=== PATIENT | male | born 1955 | race Two or more races ===

== ENCOUNTER → 2021-11-21 | Outpatient (CLI) | payer OTHER | END | disposition home or self-care (01) | LOC: LAB 07:50 | PROVIDERS: ATTEND Student in an Organized Health Care Education/Training Program | DX: E03.9 Hypothyroidism, unspecified (principal) | CPT/HCPCS: 36415; 84443 ==

== ENCOUNTER → 2023-01-29 | Outpatient (CLI) | payer OTHER, MEDICARE ==
[2023-01-29 08:10] LABS: Urine WBC None Seen /hpf (0 - 3)
[2023-01-29 08:14] LABS: Basophils # (auto) 0 10 ^3/uL (0-0.2); Basophils % (auto) 0.7 % (0.0-2.0); Eosinophils # (auto) 0.2 10 ^3/uL (0-0.8); Eosinophils % (auto) 3.4 % (0.0-7.0); Hematocrit 47.7 % (41.0-53.0); Hemoglobin 15.9 g/dL (13.5-17.5); Lymphocytes % (auto) 28.5 % (10.0-50.0); Mean Corpuscular Hemoglobin 28.9 pg (28.0-32.0); Mean Corpuscular Hgb Conc. 33.3 g/dL (32.0-36.0); Mean Corpuscular Volume 86.8 fL (80.0-100.0); Monocytes # (auto) 0.6 10 ^3/uL (0-1.3); Monocytes % (auto) 7.9 % (0.0-12.0); Neutrophils # (auto) 4.2 10 ^3/uL (1.6-8.6); Neutrophils % (auto) 59.5 % (37.0-80.0); Nucleated Red Blood Cells % 0.1 %; Red Blood Cells 5.49 10^6/uL (4.5-5.90); Red Cell Distribution Width 13.1 % (11.8-14.3)
[2023-01-29 08:27] LABS: Urine Bacteria NONE SEEN /hpf (None Seen); Urine Blood Negative /uL (Negative); Urine Specific Gravity 1.004 (1.001-1.035)
[2023-01-29 09:53] LABS: Albumin 3.6 g/dL (3.4-5.0); BUN/Creatinine Ratio 15.4 (10.0-20.0)
== END | disposition home or self-care (01) ==
LOC: LAB 07:58
PROVIDERS: ATTEND Student in an Organized Health Care Education/Training Program
DX: I10 Essential (primary) hypertension (principal); E03.8 Other specified hypothyroidism
CPT/HCPCS: 36415; 80053; 80061; 81001; 83036; 84439; 84443; 85025

== ENCOUNTER → 2023-07-23 | Outpatient (CLI) | payer OTHER ==
[2023-07-23 12:03] LABS: Urine Bacteria NONE SEEN /hpf (None Seen); Urine Blood Negative /uL (Negative); Urine Clarity Clear (Clear); Urine Color Colorless (Yellow); Urine Protein, UAD Negative (Negative); Urine Specific Gravity 1.011 (1.001-1.035); Urine Urobilinogen Normal (Negative); Urine WBC <1 /hpf (0 - 3); Urine pH 7.5 (5.0-8.0)
[2023-07-23 12:13] LABS: Anion Gap 6 (5-15); Carbon Dioxide 28 mmol/L (20-30); Chloride 105 mmol/L (98-107); Sodium 139 mmol/L (136-145)
[2023-07-23 12:14] LABS: Calcium 9.2 mg/dL (8.5-10.1)
[2023-07-23 12:19] LABS: BUN/Creatinine Ratio 14.9 (10.0-20.0); Blood Urea Nitrogen 13 mg/dL (9-23); Glucose 87 mg/dL (74-106)
== END | disposition home or self-care (01) ==
LOC: LAB 11:16
PROVIDERS: ATTEND Student in an Organized Health Care Education/Training Program
DX: I10 Essential (primary) hypertension (principal); E03.8 Other specified hypothyroidism
CPT/HCPCS: 36415; 80048; 81001; 82274; 84439; 84443

== ENCOUNTER → 2025-01-12 | Outpatient (CLI) | payer OTHER ==
[2025-01-12 07:20] LABS: Urine Bacteria None Seen /hpf (None Seen)
[2025-01-12 07:23] LABS: Basophils # (auto) 0 10 ^3/uL (0-0.2); Basophils % (auto) 0.3 % (0.0-2.0); Eosinophils # (auto) 0 10 ^3/uL (0-0.8); Eosinophils % (auto) 0.3 % (0.0-7.0); Hematocrit 44.7 % (41.0-53.0); Hemoglobin 14.9 g/dL (13.5-17.5); Lymphocytes # (auto) 1.5 10 ^3/uL (0.4-5.4); Lymphocytes % (auto) 17.5 % (10.0-50.0); Mean Corpuscular Hemoglobin 30.1 pg (28.0-32.0); Mean Corpuscular Hgb Conc. 33.3 g/dL (32.0-36.0); Mean Corpuscular Volume 90.3 fL (80.0-100.0); Monocytes # (auto) 0.6 10 ^3/uL (0-1.3); Monocytes % (auto) 6.5 % (0.0-12.0); Neutrophils # (auto) 6.6 10 ^3/uL (1.6-8.6); Neutrophils % (auto) 75.4 % (37.0-80.0); Platelet Count (auto) 333 10^3/uL (140-450); Red Blood Cells 4.94 10^6/uL (4.5-5.90); Red Cell Distribution Width 13.4 % (11.8-14.3); White Blood Cell 8.8 10^3/uL (4.4-10.8)
[2025-01-12 07:27] LABS: Urine Blood Negative /uL (Negative); Urine Clarity Clear (Clear); Urine Color Colorless (Yellow); Urine Protein, UAD Negative (Negative); Urine Specific Gravity 1.005 (1.001-1.035); Urine Squamous Epithelial Cell None Seen /hpf (<5); Urine Urobilinogen Normal (Negative)
[2025-01-12 07:48] LABS: Alanine Aminotransferase 15 U/L (7-40); Albumin 4.5 g/dL (3.2-4.8); Anion Gap 7 (5-15); BUN/Creatinine Ratio 17.9 (10.0-20.0); Bilirubin, Total 1.1 mg/dL (0.2-1.0); Blood Urea Nitrogen 14 mg/dL (9-23); Calcium 9.5 mg/dL (8.7-10.4); Carbon Dioxide 26 mmol/L (20-31); Chloride 104 mmol/L (98-107); Glucose 104 mg/dL (74-106); Potassium 3.8 mmol/L (3.5-5.1); Sodium 137 mmol/L (136-145); Total Protein 7.5 g/dL (5.7-8.2); Triglycerides 52 mg/dL (< 150)
[2025-01-12 07:52] LABS: Alkaline Phosphatase 139 U/L (46-116); Aspartate Aminotransferase 11 U/L (13-40); Cholesterol 208 mg/dL (< 200); HDL Cholesterol 81 mg/dL (40-59); LDL Cholesterol 110 mg/dL (< 100)
[2025-01-12 10:58] LABS: Prostate Specific Antigen 0.84 ng/mL (0.0-4.0)
[2025-01-12 11:09] LABS: Free T4 (Free Thyroxine) 1.38 ng/dL (0.89-1.76)
== END | disposition home or self-care (01) ==
LOC: LAB 07:07
PROVIDERS: ATTEND Student in an Organized Health Care Education/Training Program
DX: Z12.11 Encounter for screening for malignant neoplasm of colon (principal); N40.0 Benign prostatic hyperplasia without lower urinary tract symptoms; I10 Essential (primary) hypertension; E03.8 Other specified hypothyroidism; R73.9 Hyperglycemia, unspecified
CPT/HCPCS: 36415; 80053; 80061; 81001; 83036; 84153; 84439; 84443; 85025

== ENCOUNTER 2025-06-13 09:27 | Outpatient (CLI) | payer OTHER ==
[2025-06-13 10:03] LABS: Hematocrit 43.1 % (41.0-53.0); Hemoglobin 14.7 g/dL (13.5-17.5); Mean Corpuscular Hemoglobin 30.3 pg (28.0-32.0); Mean Corpuscular Volume 89.2 fL (80.0-100.0); Nucleated Red Blood Cells % 0.1 %
[2025-06-13 10:52] LABS: Alanine Aminotransferase 15 U/L (7-40); Alkaline Phosphatase 111 U/L (46-116); Anion Gap 10 (5-15); BUN/Creatinine Ratio 17.7 (10.0-20.0); Blood Urea Nitrogen 17 mg/dL (9-23); Calcium 9.0 mg/dL (8.7-10.4); Carbon Dioxide 24 mmol/L (20-31); Chloride 106 mmol/L (98-107); Glucose 94 mg/dL (74-106); Potassium 3.9 mmol/L (3.5-5.1); Sodium 140 mmol/L (136-145); Triglycerides 114 mg/dL (< 150)
[2025-06-13 10:53] LABS: Cholesterol 195 mg/dL (< 200); Total Protein 7.4 g/dL (5.7-8.2)
[2025-06-13 10:54] LABS: Albumin 4.1 g/dL (3.2-4.8); Bilirubin, Total 1.0 mg/dL (0.2-1.0)
[2025-06-13 10:55] LABS: HDL Cholesterol 64 mg/dL (40-59)
== END 2025-06-13 17:00 | disposition home or self-care (01) ==
LOC: LAB 09:27
PROVIDERS: ATTEND Student in an Organized Health Care Education/Training Program
DX: I10 Essential (primary) hypertension (principal); E78.5 Hyperlipidemia, unspecified; E55.9 Vitamin D deficiency, unspecified; R73.9 Hyperglycemia, unspecified
CPT/HCPCS: 36415; 80053; 80061; 83036; 84439; 84443; 85025

== ENCOUNTER 2025-08-05 19:21 | Emergency (ER) | payer OTHER ==
[~2025-08-05] VITALS: Ht 167.6 cm; Wt 90.2 kg
--- NOTE | 2025-08-05 19:55 | ED.PDOC ---
History of Present Illness HPI Comments This patient is a 70 y/o obese Argentine-speaking M with a history of hypertension, presents with spouse for c/c of burning epigastric abdominal pain, nausea, and vomiting. Patient reports 2x week history of symptoms following initial, unprovoked and atraumatic onset. He comments on pain radiating to his substernal chest and back area and describes his vomitus as "acidic." No endorsement of any recent ailments, sick contacts, travel, spoiled food consumption, or further pertinent medical, surgical, or social history. He states on being compliant with his medications. Denies any bloody or bilious vomitus, diarrhea, constipation, urinary problems, or further acute symptoms. Upon arrival to ED triage, patient's vitals were noted to have been stable and within normal limits, with exception of being, slightly, hypertensive. Chief Complaint: Abdominal Pain Time Seen by MD: 19:45 Reviewed Notes: Nurses Notes, Medications, Allergies Allergies: Coded Allergies: NO KNOWN ALLERGIES (Unverified , 08/05/25) Information Source: Patient, Spouse Mode of Arrival: Ambulatory Severity: Moderate Timing: Weeks Duration: Since onset Prehospital treatment: None Past Medical History PAST MEDICAL HISTORY: HTN Surgical History: Denies all surgeries Family History Family History: Reviewed,noncontributory to illness, No family hx of Cancer, No family hx of DM, No family hx of Heart zen, No family hx of HTN, No family hx ofKidney zen, No family hx of Liver zen, No family hx of Lung zen, No family hx of Stroke Social History Smoker: Non-Smoker Alcohol: Denies ETOH Use Drugs: Denies Drug Use Lives In: Home Constitutional: denies: chills, diaphoresis, fatigue, fever, malaise, sweats, weakness, others EENTM: denies: blurred vision, double vision, ear bleeding, ear discharge, ear drainage, ear pain, ear ringing, eye pain, eye redness, hearing loss, mouth pain, mouth swelling, nasal discharge, nose bleeding, nose congestion, nose pain, photophobia, tearing, throat pain, throat swelling, voice changes, others Respiratory: denies: cough, hemoptysis, orthopnea, SOB at rest, shortness of breath, SOB with excertion, stridor, wheezing, others Cardiovascular: denies: chest pain, dizzy spells, diaphoresis, Dyspnea on exertion, edema, irregular heart beat, left arm pain, lightheadedness, palpitations, PND, syncope, others Gastrointestinal: reports: abdominal pain; denies: abdomen distended, blood streaked bowels, constipated, diarrhea, dysphagia, difficulty swallowing, hematemesis, melena, nausea, poor appetite, poor fluid intake, rectal bleeding, rectal pain, vomiting, others Genitourinary: denies: burning, dysuria, flank pain, frequency, hematuria, incontinence, penile discharge, penile sore, pain, testicle pain, testicle swelling, urgency, others Neurological: denies: dizziness, fainting, headache, left sided numbness, left sided weakness, numbness, paresthesia, pre-existing deficit, right sided numbness, right sided weakness, seizure, speech problems, tingling, tremors, weakness, others Musculoskeletal: reports: back pain; denies: gout, joint pain, joint swelling, muscle pain, muscle stiffness, neck pain, others Integumetry: denies: bruises, change in color, change in hair/nails, dryness, laceration, lesions, lumps, rash, wounds, others Allergic/Immunocompromised: denies: Difficulty Healing, Frequent Infections, Hives, Itching, others Hematologic/Lymphatic: denies: anemia, blood clots, easy bleeding, easy bruising, swollen glands, others Endocrine: denies: excessive hunger, excessive sweating, excessive thirst, excessive urination, flushing, intolerance to cold, intolerance to heat, unexplained weight gain, unexplained weight loss, others Psychiatric: denies: anxiety, bipolar disorder, depression, hopeless, panic disorder, schizophrenia, sleepless, suicidal, others All Other Systems: Reviewed and Negative (Comprehensive review of systems are negative unless stated in HPI) Physical Exam General Appearance: Moderate Distress (Patient was in mild to moderate distress due to epigastric discomfort), Obese HEENT: Normal ENT Inspection, Pharynx Normal, TMs Normal Neck: Full Range of Motion, Non-Tender, Normal, Normal Inspection Respiratory: Chest Non-Tender, Lungs Clear, No Accessory Muscle Use, No Respiratory Distress, Normal Breath Sounds Cardiovascular: No Edema, No JVD, No Murmur, No Gallop, Normal Peripheral Pulses, Regular Rate/Rhythm Breast Exam: Deferred Gastrointestinal: Other (Diffuse nonspecific epigastric tenderness to palpation extending into the lower belly and up into the chest. No pulsatile masses. Abdomen was reasonably soft.) Genitalia: Deferred Pelvic: Deferred Rectal: Deferred Extremities: No calf tenderness, Normal inspection, Non-tender Neurologic: Alert Cerebellar Function: NOT DONE Reflexes: NOT DONE Skin: Dry, Normal Color, Warm Lymphatic: No Adenopathy Was a procedure done? Was a procedure done?: No Differential Dx Considerations may include: gastritis, gastroenteritis, pancreatitis, GERD, sepsis, electrolyte abnormality, UTI X-Ray, Labs, Meds, VS Vital Signs Date Time Temp Pulse Resp B/P (MAP) Pulse Ox O2 Delivery O2 Flow Rate FiO2 08/05/25 20:41 74 18 98 Room Air* 0 21 08/05/25 20:41 98.5 74 18 146/83 (104) 95 98.5 08/05/25 20:24 75 08/05/25 19:22 98.1 74 18 147/91 97 98.1 Lab Test 08/05/25 20:56 08/05/25 19:52 Range/Units Urine Color Yellow Yellow Urine Clarity Clear Clear Urine pH 5.5 5.0-9.0 Urine Specific [place] 1.027 1.001-1.035 Urine Protein Trace H Negative Urine Ketones Trace Negative Urine Blood Negative Negative /uL Urine Nitrite Negative Negative Urine Bilirubin Negative Negative Urine Urobilinogen Normal Negative mg/dL Urine Leukocyte Esterase Negative Negative /uL Urine RBC 5 0 - 3 /hpf Urine Microscopic WBC 1 0-3 /HPF Urine Squamous Epithelial Cells Few <5 /hpf Urine Bacteria None seen None Seen /hpf Urine Mucus Few None Seen Urine Glucose Normal Normal mg/dL White Blood Count 9.2 4.4-10.8 10^3/uL Red Blood Count 4.86 4.5-5.90 10^6/uL Hemoglobin 14.6 13.5-17.5 g/dL Hematocrit 43.4 41.0-53.0 % Mean Corpuscular Volume 89.3 80.0-100.0 fL Mean Corpuscular Hemoglobin 30.1 28.0-32.0 pg Mean Corpuscular Hemoglobin Concent 33.7 32.0-36.0 g/dL Red Cell Distribution Width 13.5 11.8-14.3 % Platelet Count 480 H 140-450 10^3/uL Mean Platelet Volume 6.8 L 6.9-10.8 fL Neutrophils (%) (Auto) 77.8 37.0-80.0 % Lymphocytes (%) (Auto) 13.4 10.0-50.0 % Monocytes (%) (Auto) 7.9 0.0-12.0 % Eosinophils (%) (Auto) 0.6 0.0-7.0 % Basophils (%) (Auto) 0.3 0.0-2.0 % Neutrophils # (Auto) 7.2 1.6-8.6 10 ^3/uL Lymphocytes # (Auto) 1.2 0.4-5.4 10 ^3/uL Monocytes # (Auto) 0.7 0-1.3 10 ^3/uL Eosinophils # (Auto) 0.1 0-0.8 10 ^3/uL Basophils # (Auto) 0 0-0.2 10 ^3/uL Nucleated Red Blood Cells 0.6 % Sodium Level 136 136-145 mmol/L Potassium Level 4.3 3.5-5.1 mmol/L Chloride Level 101 98-107 mmol/L Carbon Dioxide Level 25 20-31 mmol/L Anion Gap 10 5-15 Blood Urea Nitrogen 26 H 9-23 mg/dL Creatinine 0.93 0.700-1.30 mg/dL Glomerular Filtration Rate Calc 89 >90 mL/min BUN/Creatinine Ratio 28.0 H 10.0-20.0 Serum Glucose 95 74-106 mg/dL Calcium Level 9.0 8.7-10.4 mg/dL Lipase 54 H 12-53 U/L Current Medications Medications (Trade) Dose Ordered Sig/Maurilio Route Start Time Stop Time Status Last Admin Al Hydrox/Mg Hydrox/Simethicone (Maalox Plus) 30 ml ONCE ONCE PO 08/05/25 19:45 08/05/25 19:47 DC 08/05/25 20:54 Lidocaine HCl (Xylocaine 2% Viscous) 3 ml ONCE ONCE PO 08/05/25 19:45 08/05/25 19:47 DC 08/05/25 20:53 Ondansetron HCl (Zofran Po) 4 mg ONCE ONCE PO 08/05/25 19:45 08/05/25 19:47 DC 08/05/25 20:55 X-Ray, Labs, Meds, VS Comment All studies performed the ED were evaluated by me personally. Serum studies were relatively unremarkable with the exception of a mildly elevated lipase. Patient had reasonably good resolution of symptoms status post medication dispensed. Patient appears to be suffering from a gastritis event Patient may have some pancreatic concerns that can be addressed on an outpatient basis with his primary care provider. Advised patient utilize medication as needed and follow up with the primary care provider for discussions related to today's visit. Time of 1ST Reevaluation: 22:16 Reevaluation 1ST: Improved Consultation: PCP Patient Education/Counseling: Diagnosis, Treatment, Need For Follow Up Family Education/Counseling: Diagnosis, Treatment, Need For Follow Up SEPSIS Sepsis Screen Date sepsis recognized/suspect: Aug 05, 2025 Time Sepsis recognized/suspect: 1926 Recent Procedure: No On Antibiotic Therapy: No Respiratory Rate >20: No Heart Rate >90: No Temp<36 C (96.8 F) or >38.3 C: No SBP <90 or MAP <65 mmHG: No New Acute Mental Status Change: No Is the patient on CPAP, BIPAP,: No Physician Orders Electrocardigram (08/05/25 19:45) Vital Signs Date Time Temp Pulse Resp B/P (MAP) Pulse Ox O2 Delivery O2 Flow Rate FiO2 08/05/25 20:41 74 18 98 Room Air* 0 21 08/05/25 20:41 98.5 74 18 146/83 (104) 95 98.5 08/05/25 20:24 75 08/05/25 19:22 98.1 74 18 147/91 97 98.1 Laboratory Tests Test 08/05/25 19:52 White Blood Count 9.2 10^3/uL (4.4-10.8) Medications Medications Dose Ordered Sig/Maurilio Route Start Time Stop Time Status Last Admin Dose Admin Al Hydrox/Mg Hydrox/Simethicone 30 ml ONCE ONCE PO 08/05/25 19:45 08/05/25 19:47 DC 08/05/25 20:54 Lidocaine HCl 3 ml ONCE ONCE PO 08/05/25 19:45 08/05/25 19:47 DC 08/05/25 20:53 Ondansetron HCl 4 mg ONCE ONCE PO 08/05/25 19:45 08/05/25 19:47 DC 08/05/25 20:55 Departure 1 Departure Time of Disposition: 22:16 Impression: Primary Impression: Gastritis Disposition: 01 HOME / SELF CARE / HOMELESS Condition: Stable Additional Instructions: Advised patient utilize medication as needed for symptomatic relief. Patient should follow up with his primary care provider for discussions related to management of future gastritis events as well as discussions related to pancreatic health. e-Prescriptions Hydrocodone-Acetaminophen (Hydrocodone Bitartrate/AC 5-325 mg) 1 Tab Tab 1 TAB PO Q8HP PRN, #10 TAB Prov: DENNYS SCHNEIDER PAC 08/05/25 Calcium Carbonate-Simethicone (Maalox Advanced Maximum S) 1 Chw Chw 1 CHW PO Q8HP PRN, #20 TAB.CHEW Prov: DENNYS SCHNEIDER PAC 08/05/25 Omeprazole Magnesium (Omeprazole) 20 Mg Tab 20 MG PO DAILY for 21 Days, #21 TAB Prov: DENNYS SCHNEIDER PAC 08/05/25 Discharged With: Self, Spouse Critical Care Note Critical Care Time?: No Stability Stability form required: No Heart Score Heart Score: Heart Score Response (Comments) Value History N/A 0 EKG N/A 0 Age N/A 0 Risk Factors N/A 0 Troponin N/A 0 Total 0 I personally scribed for DENNYS SCHNEIDER PAC ([email or web address]) on 08/05/25 at 19:55. Electronically submitted by Burton Paz [email or web address]). DENNYS SCHNEIDER PAC Aug 05, 2025 19:55
[2025-08-05 20:05] LABS: Hematocrit 43.4 % (41.0-53.0); Hemoglobin 14.6 g/dL (13.5-17.5); Mean Corpuscular Hemoglobin 30.1 pg (28.0-32.0); Mean Corpuscular Volume 89.3 fL (80.0-100.0); Nucleated Red Blood Cells % 0.6 %
[2025-08-05 20:17] LABS: Chloride 101 mmol/L (98-107); Potassium 4.3 mmol/L (3.5-5.1)
[2025-08-05 20:18] LABS: Anion Gap 10 (5-15); Carbon Dioxide 25 mmol/L (20-31)
[2025-08-05 20:19] LABS: Calcium 9.0 mg/dL (8.7-10.4); Sodium 136 mmol/L (136-145)
[2025-08-05 20:23] LABS: Glucose 95 mg/dL (74-106)
[2025-08-05 20:24] LABS: BUN/Creatinine Ratio 28.0 (10.0-20.0); Blood Urea Nitrogen 26 mg/dL (9-23); Lipase 54 U/L (12-53)
[2025-08-05 20:41] VITALS: BP 146/83; PULSE 74; RESP 18; TEMP 98.5; O2SAT 98
[2025-08-05] MEDS: LIDOCAINE VISCOUS 2% 15ML UD PO ONE (20:53)
[2025-08-05] MEDS: MAALOX PLUS or MAALOX 30 ML PO ONE (20:54)
[2025-08-05] MEDS: ONDANSETRON ODT 4 MG TAB PO ONE (20:55)
[2025-08-05 21:33] LABS: Urine Protein, UAD TRACE (Negative)
[2025-08-05] MEDS ORDERED: OMEP-434 PO (22:18)
[2025-08-05] MEDS ORDERED: HYDR-4902 PO (22:18)
[2025-08-05] MEDS ORDERED: CALC100023 PO (22:18)
[2025-08-05] MEDS: PANTOPRAZOLE 40 MG TAB PO ONE (22:36)
--- NOTE | 2025-08-07 09:57 | ECG ---
[facility] Test Date: 2025-08-05 Test Time: 20:24:26 Pat Name: CAMI POPE Department: Room: Gender: M Clinical Director: : [id number] Requested By: DENNYS SCHNEIDER Order Number: [id number] Reading MD: Tan Curry Measurements Intervals [place] Rate: 75 P: 12 NM: 120 QRS: 14 QRSD: 106 T: -29 QT: 374 QTc: 418 Interpretive Statements Sinus rhythm LVH with secondary repolarization abnormality Electronically Signed On 08-07-2025 15:14:00 PDT by Tan Curry Please click the below link to view image of tracing.
== END 2025-08-05 22:34 | disposition home or self-care (01) ==
LOC: ER 19:22
DX: K29.70 Gastritis, unspecified, without bleeding (principal); I10 Essential (primary) hypertension; E66.9 Obesity, unspecified; Z68.32 Body mass index [BMI] 32.0-32.9, adult
CPT/HCPCS: 36415; 80048; 81001; 83690; 85025; 93005; 99284; Q0162

== ENCOUNTER 2025-08-08 08:38 | Outpatient (CLI) | payer OTHER ==
[~2025-08-08 08:38] MED LIST: CALC100023 PO; HYDR-4902 PO; OMEP-434 PO
[2025-08-08] MEDS ORDERED: IOHEXOL 300 MG/ML 100ML BOTTLE IJ ONE (09:06)
[2025-08-08] MEDS ORDERED: BUPIVACAINE HCL 0.25% P/F 10 ML VIAL ONE (09:06)
[2025-08-08] MEDS ORDERED: methylPREDNISolone ACETATE 80 MG/ML VL ONE (09:06)
[2025-08-08] MEDS ORDERED: LIDOCAINE 2%HCL (LOCAL ANESTH.) INJ 10ml MDV ONE (09:06)
--- NOTE | 2025-08-08 11:32 | DVH ---
XY C ARM FLUOROSCOPY UP TO 60MIN HISTORY: STEROID INJECTION COMPARISON: XY L HIP 1V XRAY on DOS: 08/08/25, XY R HIP 1V XRAY on DOS: 08/08/25, XY L HIP COMPLETE X RAY on DOS: 03/22/25 PROCEDURE: The risks and benefits of the procedure including infection, hemorrhage and technical failure were di scussed with the patient, who agreed to proceed. The patient was positioned supine on the fluoroscopy table. Time out was performed. The right and lef t hip was localized using fluoroscopy, and the location on the skin for needle insertion was marked. The region was prepped and draped using routine sterile technique. Approximately 2 cc of lidocaine wa s injected for local anesthesia. A 22 gauge spinal needle was inserted, and intra-articular location was confirmed by injection of less than 1 cc of iodinated contrast. 1 cc of methylprednisolone (80 mg /cc) and 4 cc of Bupivacaine (0.25%) and 5 cc of 2% Lidocaine was then injected without complication. Fluoroscopy time was 0.6. The patient was informed of the temporary precautions to take following the procedure as well as of t he potential signs and symptoms which may indicate the need to contact physician, and expressed unde rstanding of this discussion. IMPRESSION: Successful steroid and anesthetic injection of the right and left hip.
== END 2025-08-08 17:00 | disposition home or self-care (01) ==
LOC: XYW 08:38
PROVIDERS: ATTEND Orthopaedic Surgery Adult Reconstructive Orthopaedic Surgery
DX: M16.0 Bilateral primary osteoarthritis of hip (principal); M70.61 Trochanteric bursitis, right hip; M17.11 Unilateral primary osteoarthritis, right knee; I10 Essential (primary) hypertension; E03.9 Hypothyroidism, unspecified; N40.0 Benign prostatic hyperplasia without lower urinary tract symptoms; Z79.82 Long term (current) use of aspirin; Z79.899 Other long term (current) drug therapy
CPT/HCPCS: 20610; 77002; J1010; J2003; J3490; Q9967; 73501; 76000

== ENCOUNTER → 2025-08-22 | Outpatient (CLI) | payer OTHER ==
[2025-08-24 17:07] LABS: IgE Cottonwood 0.25 kU/L (Class 0/I); IgE Elm, American 0.45 kU/L (Class I); IgE Johnson Grass 0.64 kU/L (Class II); IgE Mouse Urine <0.10 kU/L (Class 0); IgE Mugwort 0.12 kU/L (Class 0/I); IgE Ragweed, Short 5.18 kU/L (Class IV); IgE Rye, Perennial 1.44 kU/L (Class III); IgE Tri a 19(w-5 gliadin) <0.10 kU/L (Class 0); T007-IgE Oak, White 0.20 kU/L (Class 0/I)
== END | disposition home or self-care (01) ==
LOC: LAB 13:24
PROVIDERS: ATTEND Student in an Organized Health Care Education/Training Program
DX: T78.40XA Allergy, unspecified, initial encounter (principal); L50.8 Other urticaria; X58.XXXA Exposure to other specified factors, initial encounter
CPT/HCPCS: 82785; 86003